=== PATIENT | female | born 1995 | race Two or more races ===

== ENCOUNTER 2020-12-13 18:22 | Observation (INO) | payer MEDICAID ==
[~2020-12-13] VITALS: Ht 162.6 cm; Wt 76.2 kg
[2020-12-13 18:26] VITALS: BP 122/53
[2020-12-13] MEDS ORDERED: ALBUTEROL SULF 2.5 MG/0.5ML(0.5%) NEB SOLN NEB ONE (19:00)
[2020-12-13] MEDS ORDERED: IPRATROPIUM BROM 0.5 MG/2.5ML INH SOL NEB ONE (19:00)
[2020-12-13] MEDS ORDERED: cefTRIAXone SOD 1,000 MG VL IM ONE (20:30)
[2020-12-13] MEDS ORDERED: LIDOCAINE 1% HCL (LOCAL ANESTH.) INJ 20ML MDV IJ ONE (20:45)
[2020-12-13] MEDS ORDERED: PREN-96 PO (21:47)
== END 2020-12-13 22:35 | disposition home or self-care (01) ==
LOC: ER 18:25 → LDRP 20:54
PROVIDERS: ADMIT Specialist; ATTEND Specialist
DX: O99.512 Diseases of the respiratory system complicating pregnancy, second trimester (principal); J30.2 Other seasonal allergic rhinitis; J06.9 Acute upper respiratory infection, unspecified; O26.892 Other specified pregnancy related conditions, second trimester; R10.2 Pelvic and perineal pain; Z3A.27 27 weeks gestation of pregnancy
CPT/HCPCS: 59025; 81002; 94640; 96372; 99284; G0378; J0696; J2001; J7644

== ENCOUNTER 2021-01-27 14:30 | Observation (INO) | payer MEDICAID ==
[~2021-01-27 14:30] MED LIST: PREN-96 PO
== END 2021-01-27 15:25 | disposition home or self-care (01) ==
LOC: LDRP 14:30
PROVIDERS: ADMIT Specialist; ATTEND Specialist
DX: O36.8130 Decreased fetal movements, third trimester, not applicable or unspecified (principal); Z3A.33 33 weeks gestation of pregnancy
CPT/HCPCS: 59025; 81002; G0378

== ENCOUNTER 2021-03-14 11:15 | Observation (INO) | payer MEDICAID ==
[~2021-03-14] VITALS: Ht 162.6 cm; Wt 82.6 kg
[2021-03-14] MEDS ORDERED: FERR-20 PO (11:32)
== END 2021-03-14 12:07 | disposition home or self-care (01) ==
LOC: LDRP 11:15
PROVIDERS: ADMIT Specialist; ATTEND Specialist
DX: O62.9 Abnormality of forces of labor, unspecified (principal); Z3A.40 40 weeks gestation of pregnancy
CPT/HCPCS: 59025; 81002; G0378

== ENCOUNTER 2022-10-29 05:15 | Emergency (ER) | payer MEDICAID ==
[~2022-10-29] VITALS: Ht 162.6 cm; Wt 72.0 kg
[~2022-10-29 05:15] MED LIST changes: +FERR-20 PO
[2022-10-29 07:31] LABS: Basophils # (auto) 0 10 ^3/uL (0-0.2); Basophils % (auto) 0.7 % (0.0-2.0); Eosinophils # (auto) 0.2 10 ^3/uL (0-0.8); Eosinophils % (auto) 5.3 % (0.0-7.0); Hematocrit 38.5 % (36.0-46.0); Hemoglobin 13.5 g/dL (12.2-16.2); Lymphocytes # (auto) 1.3 10 ^3/uL (0.4-5.4); Lymphocytes % (auto) 29.2 % (10.0-50.0); Mean Corpuscular Hemoglobin 29.3 pg (28.0-32.0); Mean Corpuscular Hgb Conc. 35.2 g/dL (32.0-36.0); Mean Corpuscular Volume 83.3 fL (80.0-100.0); Monocytes # (auto) 0.3 10 ^3/uL (0-1.3); Monocytes % (auto) 7.7 % (0.0-12.0); Neutrophils # (auto) 2.5 10 ^3/uL (1.6-8.6); Neutrophils % (auto) 57.1 % (37.0-80.0); Nucleated Red Blood Cells % 0.6 %; Red Blood Cells 4.62 10^6/uL (4.0-5.20); Red Cell Distribution Width 13.5 % (11.8-14.3); White Blood Cell 4.3 10^3/uL (4.4-10.8)
[2022-10-29 07:49] LABS: Potassium 4.3 mmol/L (3.5-5.1)
[2022-10-29 07:55] LABS: Albumin 3.8 g/dL (3.4-5.0); BUN/Creatinine Ratio 20.7; Bilirubin, Total 0.3 mg/dL (0.2-1.0); Calcium 9.1 mg/dL (8.5-10.1); Total Protein 7.3 g/dL (6.4-8.2)
[2022-10-29] MEDS ORDERED: IPRATROPIUM BROM 0.5 MG/2.5ML INH SOL NEB ONE (08:30)
[2022-10-29] MEDS ORDERED: ALBUTEROL SULF 2.5 MG/0.5ML(0.5%) NEB SOLN NEB ONE (08:30)
[2022-10-29] MEDS ORDERED: DexAMETHasone 4 MG TAB PO ONE (08:30)
[2022-10-29] MEDS ORDERED: ALBU108A5 IN (10:27)
[2022-10-29 10:37] VITALS: BP 110/76
== END 2022-10-29 10:39 | disposition home or self-care (01) ==
LOC: ER 05:15
DX: R07.89 Other chest pain (principal); J45.909 Unspecified asthma, uncomplicated
CPT/HCPCS: 36415; 71046; 80053; 83735; 84484; 85025; 93005; 94640; 99285; J7644; J8540